=== PATIENT | male | born 1955 | race Caucasian/White ===

== ENCOUNTER → 2018-03-23 | Outpatient (CLI) | payer BC ==
[2018-03-23 19:32] LABS: BASOPHILS % (AUTO) 0.6 %; EOSINOPHILS # (AUTO) 0.1 10^3/uL (0.0-0.7); EOSINOPHILS % (AUTO) 1.8 %; HGB - HEMOGLOBIN 15.4 g/dL (14.0-18.0); LYMPHOCYTES # (AUTO) 1.9 10^3/uL (1.5-3.5); LYMPHOCYTES % (AUTO) 41.5 %; MEAN CORPUSCULAR HEMOGLOBIN 30.6 pg (27.0-31.0); MEAN CORPUSCULAR HGB CONC 33.3 g/dL (32.0-36.0); MEAN PLATELET VOLUME 8.7 fL (7.4-11.4); MONOCYTES # (AUTO) 0.4 10^3/uL (0.0-1.0); MONOCYTES % (AUTO) 9.5 %; NEUTROPHILS # (AUTO) 2.1 10^3/uL (1.5-6.6); NEUTROPHILS % (AUTO) 46.6 %; PLT - PLATELET COUNT 189 10^3/uL (130-450); RED BLOOD COUNT 5.02 10^6/uL (4.70-6.10); RED CELL DISTRIBUTION WIDTH 13.3 % (12.0-15.0); WHITE BLOOD COUNT 4.6 x10^3/uL (4.8-10.8)
[2018-03-23 20:09] LABS: CHOL/HDL RATIO 3.7 (<5.0); CHOLESTEROL 155 mg/dL; HDL CHOLESTEROL 42 mg/dL; LDL CHOLESTEROL,CALCULATED 99 mg/dL; LDL/HDL RATIO 2.4 (<3.6); VLDL CHOLESTEROL 14 mg/dL
== END ==
LOC: LAB.WCP 08:00
PROVIDERS: ATTEND Family Medicine
DX: R03.0 Elevated blood-pressure reading, without diagnosis of hypertension (principal); Z12.5 Encounter for screening for malignant neoplasm of prostate
CPT/HCPCS: 36415; 80061; 83721; 84153; 84443; 85025

== ENCOUNTER 2018-05-23 16:23 | Emergency (ER) | payer BC ==
[2018-05-23 16:39] VITALS: BP 180/98
--- NOTE | 2018-05-23 17:35 | ED Physician Documentation ---
History of Present Illness - Stated complaint Stated Complaint: KNEE SWELLING - Chief complaint Chief Complaint: General - History obtained from History obtained from: Patient, Family - History of Present Illness Timing: How many days ago (3) Pain level max: 8 Pain level now: 4 - Additonal information Additional information: 63-year-old male presents to the emergency department with left knee pain for the past 2-3 days. States was worse yesterday but improving today. Has a history of a DVT in the left leg several years ago, concerned that it may be recurrent, came for evaluation. States that the left leg has been swollen since the DVT several years ago. He is not currently anticoagulated. Worse with movement and better with rest. No fevers. No redness Review of Systems Constitutional: denies: Fever, Chills Cardiac: denies: Chest pain / pressure, Palpitations Respiratory: denies: Cough GI: denies: Nausea, Vomiting, Diarrhea Skin: denies: Rash Musculoskeletal: denies: Neck pain, Back pain Neurologic: denies: Headache PD PAST MEDICAL HISTORY - Past Medical History Past Medical History: Yes Other Past Medical History: DVT - Present Medications Home Medications: Ambulatory Orders Medication Instructions Recorded Confirmed No Known Home Medications 05/23/18 05/23/18 - Allergies Allergies/Adverse Reactions: Allergies Allergy/AdvReac Type Severity Reaction Status Date / Time No Known Drug Allergies Allergy Verified 05/23/18 16:39 - Living Situation Living Situation: reports: With family Living Arrangement: reports: At home - Social History Does the pt have substance abuse?: No - Family History Family history: reports: Non contributory PD ED PE NORMAL - Vitals Vital signs reviewed: Yes - General General: Alert and oriented X 3, No acute distress - HEENT HEENT: Moist mucous membranes - Neck Neck: Supple, no meningeal sign - Cardiac Cardiac: RRR - Respiratory Respiratory: No respiratory distress, Clear bilaterally - Derm Derm: Warm and dry - Extremities Extremities: Other (L knee - Mild swelling. No bony tenderness. Neurovascularly intact. Mild MCL and LCL laxity. ACL & PCL intact. ) - Neuro Neuro: Alert and oriented X 3 Results - Vitals Vitals: Vital Signs - 24 hr 05/23/18 16:35 Temperature 36.0 C L Heart Rate 74 Respiratory 16 Rate Blood Pressure 180/98 H O2 Saturation 97 Oxygen O2 Source Room air - Rads (name of study) L knee xray Radiology: Prelim report reviewed, EMP read contemporaneously, See rad report (. Moderate joint effusion. Mild to moderate chronic degenerative disease and joint space narrowing of the medial knee. ) duplex US LLE Radiology: Prelim report reviewed, EMP read contemporaneously, See rad report (no DVT) PD MEDICAL DECISION MAKING - ED course Complexity details: reviewed results, re-evaluated patient, considered differential, d/w patient, d/w family ED course: 63-year-old male with a left knee effusion, likely secondary to arthritis. He is well-appearing, nontoxic. No evidence of septic joint. Declines any pain medication here or for home. He is ambulating well. No DVT on ultrasound. Patient counseled regarding signs and symptoms for which I believe and urgent re-evaluation would be necessary. Patient with good understanding of and agreement to plan and is comfortable going home at this time This document was made in part using voice recognition software. While efforts are made to proofread this document, sound alike and grammatical errors may oc cur. Departure - Departure Disposition: 01 Home, Self Care Clinical Impression: Knee effusion, left Condition: Good Instructions: ED Effusion Knee Follow-Up: Nicanor Bradford MD [Primary Care Provider] - Within 1 week Comments: You may bear weight as tolerated. This should improve over the next few days. A neoprene brace may help compress the joint. Return if you worsen.
--- NOTE | 2018-05-23 17:43 | XRAY Report ---
Reason: L knee pain, swelling. no trauma Procedure Date: 05/23/2018 Accession Number: [id number] / [id number] Procedure: XR - Knee 4 View LT CPT Code: FULL RESULT: EXAM: LEFT KNEE RADIOGRAPHY EXAM DATE: 05/23/2018 05:19 PM. CLINICAL HISTORY: L knee pain, swelling. No trauma. COMPARISON: None. TECHNIQUE: 4 views. FINDINGS: Bones: Negative for acute fracture. There is moderate spurring and sclerosis in the medial compartment of the knee. Joints: There is mild to moderate medial compartment joint space narrowing. There is a moderate sized suprapatellar joint effusion. There is mild spurring and irregularity of the patellofemoral compartment. Soft Tissues: Normal. No soft tissue swelling. IMPRESSION: 1. Moderate joint effusion. 2. Mild to moderate chronic degenerative disease and joint space narrowing of the medial knee. RADIA
--- NOTE | 2018-05-23 18:11 | Ultrasound Report ---
Reason: L leg swelling, h/o DVT Procedure Date: 05/23/2018 Accession Number: [id number] / [id number] Procedure: US - Duplex Ext Veins Left CPT Code: FULL RESULT: EXAM: LEFT LOWER EXTREMITY VENOUS ULTRASOUND EXAM DATE: 05/23/2018 05:57 PM. CLINICAL HISTORY: L leg swelling, h/o DVT. COMPARISON: None. TECHNIQUE: Real-time sonographic vascular imaging was performed by the windows security analyst through the lower extremity utilizing both color-flow and Doppler spectral analysis. Multiple special service representative static images were saved for review. FINDINGS: Common Femoral Vein (CFV): Normal. CFV-GSV Junction: Normal. Profunda Femoral Vein (PFV): Normal. Femoral Vein (FV) Prox: Normal. Femoral Vein (FV) Mid: Normal. Femoral Vein (FV) Dist: Normal. Popliteal Vein: Normal. Posterior Tibial Veins: Normal. Peroneal Veins: Normal. Contralateral Side CFV: Normal. Other: None. IMPRESSION: No evidence for deep venous thrombosis. RADIA
== END 2018-05-23 18:12 | disposition home or self-care (01) ==
LOC: ED 16:23
DX: M25.462 Effusion, left knee (principal); Z86.718 Personal history of other venous thrombosis and embolism
CPT/HCPCS: 99282; 99283

== ENCOUNTER 2019-04-02 08:00 | Outpatient (CLI) | payer BC ==
[2019-04-02 15:24] LABS: BASOPHILS % (AUTO) 0.6 %; EOSINOPHILS # (AUTO) 0.1 10^3/uL (0.0-0.7); EOSINOPHILS % (AUTO) 2.4 %; HGB - HEMOGLOBIN 14.9 g/dL (14.0-18.0); LYMPHOCYTES % (AUTO) 41.8 %; MEAN CORPUSCULAR HEMOGLOBIN 29.9 pg (27.0-31.0); MEAN CORPUSCULAR HGB CONC 32.5 g/dL (32.0-36.0); MEAN CORPUSCULAR VOLUME 91.8 fL (80.0-94.0); MEAN PLATELET VOLUME 11.2 fL (7.4-11.4); MONOCYTES # (AUTO) 0.6 10^3/uL (0.0-1.0); MONOCYTES % (AUTO) 12.2 %; NEUTROPHILS % (AUTO) 42.8 %; PLT - PLATELET COUNT 177 10^3/uL (130-450); RED BLOOD COUNT 4.99 10^6/uL (4.70-6.10); RED CELL DISTRIBUTION WIDTH 12.9 % (12.0-15.0); WHITE BLOOD COUNT 4.7 x10^3/uL (4.8-10.8)
[2019-04-02 15:49] LABS: ALBUMIN 4.3 g/dL (3.2-5.5); ALBUMIN/GLOBULIN RATIO 1.9 (1.0-2.2); CALCIUM 8.7 mg/dL (8.5-10.3); TOTAL PROTEIN 6.6 g/dL (6.7-8.2)
== END 2019-04-02 23:59 | disposition home or self-care (01) ==
LOC: LAB.WCP 08:00
PROVIDERS: ATTEND Family Medicine
DX: Z00.00 Encounter for general adult medical examination without abnormal findings (principal); Z12.5 Encounter for screening for malignant neoplasm of prostate
CPT/HCPCS: 36415; 80053; 84153; 85025

== ENCOUNTER 2020-12-17 08:00 | Outpatient (CLI) | payer BC, OTHER ==
[2020-12-17 12:27] LABS: BASOPHILS % (AUTO) 0.5 %; EOSINOPHILS # (AUTO) 0.1 10^3/uL (0.0-0.7); HCT - HEMATOCRIT 45.8 % (42.0-52.0); HGB - HEMOGLOBIN 15.3 g/dL (14.0-18.0); LYMPHOCYTES # (AUTO) 1.9 10^3/uL (1.5-3.5); LYMPHOCYTES % (AUTO) 31.9 %; MEAN CORPUSCULAR HEMOGLOBIN 30.5 pg (27.0-31.0); MEAN CORPUSCULAR HGB CONC 33.4 g/dL (32.0-36.0); MEAN CORPUSCULAR VOLUME 91.2 fL (80.0-94.0); MEAN PLATELET VOLUME 10.5 fL (7.4-11.4); MONOCYTES # (AUTO) 0.6 10^3/uL (0.0-1.0); MONOCYTES % (AUTO) 10.4 %; NEUTROPHILS # (AUTO) 3.4 10^3/uL (1.5-6.6); PLT - PLATELET COUNT 203 10^3/uL (130-450); RED BLOOD COUNT 5.02 10^6/uL (4.70-6.10); RED CELL DISTRIBUTION WIDTH 13.1 % (12.0-15.0); WHITE BLOOD COUNT 6.1 x10^3/uL (4.8-10.8)
[2020-12-17 12:57] LABS: ALBUMIN 4.1 g/dL (3.2-5.5); ALBUMIN/GLOBULIN RATIO 1.5 (1.0-2.2); ALKALINE PHOSPHATASE 66 IU/L (42-121); ALT ALANINE AMINOTRANSFERASE 22 IU/L (10-60); AST ASPARTATE AMINOTRANSFERASE 24 IU/L (10-42); BILIRUBIN,TOTAL 0.9 mg/dL (0.2-1.0); BUN - BLOOD UREA NITROGEN 18 mg/dL (6-20); CALCIUM 9.1 mg/dL (8.5-10.3); CARBON DIOXIDE - CO2 29 mmol/L (21-32); CHLORIDE 104 mmol/L (101-111); CHOL/HDL RATIO 4.6 (<5.0); CHOLESTEROL 179 mg/dL; GFR - MDRD 75 (>89); GLUCOSE 96 mg/dL (70-100); HDL CHOLESTEROL 39 mg/dL; LDL CHOLESTEROL,CALCULATED 118 mg/dL; POTASSIUM 4.1 mmol/L (3.5-5.0); SODIUM 139 mmol/L (135-145); TOTAL PROTEIN 6.9 g/dL (6.7-8.2); TRIGLYCERIDES 109 mg/dL; VLDL CHOLESTEROL 22 mg/dL
== END 2020-12-17 23:59 | disposition home or self-care (01) ==
LOC: LAB.WCP 08:00
PROVIDERS: ATTEND Family Medicine
DX: R03.0 Elevated blood-pressure reading, without diagnosis of hypertension (principal); Z12.5 Encounter for screening for malignant neoplasm of prostate
CPT/HCPCS: 36415; 80053; 80061; 83721; 84153; 85025

== ENCOUNTER 2020-12-22 14:24 | Outpatient (CLI) | payer OTHER ==
--- NOTE | 2020-12-23 08:19 | XRAY Report ---
PROCEDURE: Lumbar Spine Complete INDICATIONS: DEGENERATIVE JOINT DISEASE TECHNIQUE: 5 views of the lumbar spine were acquired. COMPARISON: None available. FINDINGS: Bones: 5 [id number] vertebrae are present. Trace dextrocurvature centered at the L1 level. Trac e multilevel retrolisthesis. Multilevel disc degeneration, most notably and severe at the L5-S1 level . Moderate L4-L5 and L5-S1 facet joint arthropathy. No vertebral body compression fractures. No tomasa picious bony lesions. Bones are osteopenic. Soft tissues: Overlying bowel gas pattern is normal. No suspicious soft tissue calcifications. 1.5 cm rounded calcification projected over the right lower quadrant which cannot be further localized. IMPRESSION: 1. Multilevel spondylosis, most severe at the L5-S1 level. 2. 1.5 cm right lower quadrant calcification which cannot be further localized. If indicated, CT coul d be performed for further localization and characterization. Reviewed by: STEVE Adamson on 12/23/2020 8:18 AM PDT Approved by: Arcenio Alexander MD on 12/23/2020 8:18 AM PDT Station ID: [id number]
--- NOTE | 2020-12-23 08:19 | XRAY Report ---
PROCEDURE: Knee 2 View BILAT INDICATIONS: DEGENERATIVE JOINT DISEASE, BILATERAL KNEES TECHNIQUE: 2 views of the bilateral knee(s) were acquired. COMPARISON: None. FINDINGS: Bones: No fractures or dislocations. No suspicious bony lesions. Tricompartmental bilateral knee j oint space narrowing with periarticular osteophyte formation, severe involving the medial femoral tib ial joints. There is varus angulation of the lower legs bilaterally. Soft tissues: Small bilateral joint effusion. No suspicious soft tissue calcifications. IMPRESSION: Tricompartmental bilateral knee joint degeneration, severe involving the medial femoral tibial joints. Reviewed by: STEVE Adamson on 12/23/2020 8:18 AM PDT Approved by: Arcenio Alexander MD on 12/23/2020 8:18 AM PDT Station ID: [id number]
== END 2020-12-22 14:25 | disposition home or self-care (01) ==
LOC: DI.N 14:24
PROVIDERS: ATTEND Internal Medicine
DX: M47.817 Spondylosis without myelopathy or radiculopathy, lumbosacral region (principal); M47.816 Spondylosis without myelopathy or radiculopathy, lumbar region; M17.0 Bilateral primary osteoarthritis of knee; M61.9 Calcification and ossification of muscle, unspecified

== ENCOUNTER 2021-01-20 07:27 | Emergency (ER) | payer OTHER ==
[2021-01-20] MEDS ORDERED: ONDANSETRON 4 MG/2 ML VIAL IVP STA (08:01)
[2021-01-20] MEDS ORDERED: HYDROmorphone 1 MG/ML CARPUJECT IVP STA (08:01)
--- NOTE | 2021-01-20 08:03 | ED Physician Documentation ---
History of Present Illness - Stated complaint Stated Complaint: LEG SWELLING - Chief complaint Chief Complaint: Ext Problem - History obtained from History obtained from: Patient - History of Present Illness Timing: Prior to arrival Pain level now: 0 ('just hurts') - Additonal information Additional information: This is a 65-year-old man with a history of a DVT in his left leg who presents with complaints that this morning about 20 minutes ago he got up to get in the shower to go to work when he noticed his left leg was swollen. He also is having intense back pain but cannot rated on a 1-10 scale. He says he has been dealing with back pain for quite some time and has physical therapy scheduled. This pain today however is slightly different in character although he cannot specify any further than that. He does have some pain in the lower left leg but again cannot write that on a 1-10 scale either. Denies history of AAA. His prior DVT was approximately 8 to 10 years ago for which she was treated with blood thinning medications and is no longer on those medications. The source of the DVT was never completely delineated. Patient denies any abdominal pain, nausea or vomiting. No urinary symptoms. No recent trauma. 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 Denies cough, upper respiratory symptoms or fever. Review of Systems Constitutional: denies: Fever Eyes: denies: Decreased vision Nose: denies: Rhinorrhea / runny nose, Congestion Cardiac: denies: Chest pain / pressure, Palpitations Respiratory: denies: Dyspnea, Cough GI: denies: Abdominal Pain, Nausea, Vomiting : denies: Dysuria Musculoskeletal: reports: Back pain, Extremity pain (Left leg) Neurologic: reports: Numbness (Left leg 'numb feeling'). denies: Generalized weakness, Syncope PD PAST MEDICAL HISTORY - Past Medical History Neuro: None Other Past Medical History: L leg DVT - Past Surgical History Past Surgical History: No - Present Medications Home Medications: Ambulatory Orders Medication Instructions Recorded Confirmed Aspirin [Aspirin EC] 81 mg PO DAILY 01/20/21 01/20/21 - Allergies Allergies/Adverse Reactions: Allergies Allergy/AdvReac Type Severity Reaction Status Date / Time No Known Drug Allergies Allergy Verified 01/20/21 07:31 - Social History Does the pt smoke?: No Smoking Status: Never smoker Does the pt drink ETOH?: No Does the pt have substance abuse?: No PD ED PE NORMAL - Vitals Vital signs reviewed: Yes - General General: Alert and oriented X 3 - HEENT HEENT: Atraumatic, PERRL - Cardiac Cardiac: RRR, No murmur - Respiratory Respiratory: No respiratory distress, Clear bilaterally - Abdomen Abdomen: Normal bowel sounds, Soft - Back Back: No CVA TTP - Derm Derm: Other (L leg earlene color) - Extremities Extremities: No: No edema (L leg with edema diffuse and earlene color) - Neuro Neuro: Alert and oriented X 3, telecom engineer 2-12 intact, No motor deficit, No sensory deficit (Intact to light touch in feet bilat), Normal speech - Psych Psych: Normal mood - Free text exam Free text exam: No palpable pulses in left dp or post tibial; Able to doppler dp and post tibial pulses in left foot but diminished compared to R foot. Results - Vitals Vitals: Vital Signs - 24 hr 01/20/21 01/20/21 01/20/21 07:31 08:14 08:30 Temperature 36.2 C L Heart Rate 63 56 L 66 Respiratory 24 24 18 Rate Blood Pressure 100/61 80/48 L 86/53 L O2 Saturation 99 93 94 01/20/21 01/20/21 01/20/21 09:23 09:58 09:59 Temperature Heart Rate 67 66 74 Respiratory 24 18 20 Rate Blood Pressure 105/72 101/71 100/70 O2 Saturation 97 95 95 01/20/21 11:09 Temperature Heart Rate 66 Respiratory 16 Rate Blood Pressure 124/79 O2 Saturation 94 Oxygen O2 Source Room air - Labs Labs: Laboratory Tests 01/20/21 01/20/21 01/20/21 07:53 07:53 07:53 WBC 9.6 RBC 4.77 Hgb 14.5 Hct 44.2 MCV 92.7 MCH 30.4 MCHC 32.8 RDW 13.0 Plt Count 183 MPV 10.1 Neut # (Auto) 5.9 Lymph # (Auto) 2.5 [place] # (Auto) 1.0 Eos # (Auto) 0.1 Baso # (Auto) 0.0 Absolute Nucleated RBC 0.00 Nucleated RBC % 0.0 PT INR APTT 24.0 L Sodium 138 Potassium 3.8 Chloride 102 Carbon Dioxide 25 Anion Gap 11.0 BUN 25 H Creatinine 1.1 Estimated GFR (MDRD) 67 L Glucose 141 H Calcium 9.1 01/20/21 01/20/21 07:53 09:35 WBC 10.0 RBC 4.76 Hgb 14.3 Hct 44.1 MCV 92.6 MCH 30.0 MCHC 32.4 RDW 12.9 Plt Count 149 MPV 9.6 Neut # (Auto) Lymph # (Auto) [place] # (Auto) Eos # (Auto) Baso # (Auto) Absolute Nucleated RBC Nucleated RBC % PT 12.2 INR 1.1 APTT Sodium Potassium Chloride Carbon Dioxide Anion Gap BUN Creatinine Estimated GFR (MDRD) Glucose Calcium PD MEDICAL DECISION MAKING - ED course ED course: 0844: Nursing reports pain improved. Patient in CT now. 1015: Radiologist reports equivocal results with CTA abd with LE runoff. Recommend U/S arterial for further delineation. Ordered venous doppler also. Emperic heparin started awaiting confirmatory ultrasound. 1200: Phone call from radiologist regarding the ultrasound report. The arterial system is patent. There is extensive clot in the left lower extremity venous system that appears even to enter the iliac veins. Given his clinical presentation and the extensive clot they recommended catheter directed thrombolysis. The patient request transfer to [facility] if possible for the procedure. 1325: The patient has been accepted to [facility]. We are awaiting transport. Departure - Departure Disposition: 02 Transfer Acute Care Hosp Clinical Impression: Deep vein thrombosis, Phlegmasia cerulea dolens of left lower extremity Condition: Good
[2021-01-20 08:10] LABS: BASOPHILS % (AUTO) 0.4 %; EOSINOPHILS # (AUTO) 0.1 10^3/uL (0.0-0.7); HCT - HEMATOCRIT 44.2 % (42.0-52.0); HGB - HEMOGLOBIN 14.5 g/dL (14.0-18.0); LYMPHOCYTES # (AUTO) 2.5 10^3/uL (1.5-3.5); LYMPHOCYTES % (AUTO) 26.5 %; MEAN CORPUSCULAR HEMOGLOBIN 30.4 pg (27.0-31.0); MEAN CORPUSCULAR HGB CONC 32.8 g/dL (32.0-36.0); MEAN CORPUSCULAR VOLUME 92.7 fL (80.0-94.0); MEAN PLATELET VOLUME 10.1 fL (7.4-11.4); MONOCYTES % (AUTO) 10.4 %; NEUTROPHILS # (AUTO) 5.9 10^3/uL (1.5-6.6); NEUTROPHILS % (AUTO) 61.3 %; PLT - PLATELET COUNT 183 10^3/uL (130-450); RED BLOOD COUNT 4.77 10^6/uL (4.70-6.10); WHITE BLOOD COUNT 9.6 x10^3/uL (4.8-10.8)
[2021-01-20] MEDS ORDERED: IOPAMIDOL-300 100 ML VIAL ONE (08:11)
[2021-01-20 08:15] LABS: CALCIUM 9.1 mg/dL (8.5-10.3); CREATININE 1.1 mg/dL (0.6-1.2); POTASSIUM 3.8 mmol/L (3.5-5.0)
[2021-01-20] MEDS ORDERED: LACTATED RINGERS 1,000 ML IV STA (08:30)
[2021-01-20 08:56] LABS: INR 1.1 (0.8-1.2); PT - PROTHROMBIN TIME 12.2 secs (9.9-12.6)
[2021-01-20] MEDS ORDERED: HEPARIN 5,000 UNIT/ML VIAL IVP STA (09:02)
[2021-01-20 09:41] LABS: HCT - HEMATOCRIT 44.1 % (42.0-52.0); HGB - HEMOGLOBIN 14.3 g/dL (14.0-18.0); MEAN CORPUSCULAR HGB CONC 32.4 g/dL (32.0-36.0); MEAN CORPUSCULAR VOLUME 92.6 fL (80.0-94.0); MEAN PLATELET VOLUME 9.6 fL (7.4-11.4); RED BLOOD COUNT 4.76 10^6/uL (4.70-6.10); RED CELL DISTRIBUTION WIDTH 12.9 % (12.0-15.0)
--- NOTE | 2021-01-20 09:47 | CT Report ---
PROCEDURE: ANGIO ABD RUNOFF W/WO - B/L INDICATIONS: Left leg pain, swelling and decrease pulse CONTRAST: IV CONTRAST: Isovue 300 ml: 125 PO CONTRAST: *NO PO CONTRAST TECHNIQUE: After the administration of intravenous contrast, 2 and 5 mm sections acquired from T12 to the feet, with optional delayed image acquisition from the knees to the feet. 3-dimensional maximum intensity projection (MIP) coronal and sagittal reformats, and/or 3-dimensional volume rendering reformatting w as then performed. For radiation dose reduction, the following was used: automated exposure control , adjustment of mA and/or kV according to patient size. Due to lack of contrast noted in left leg art erial structures, repeat imaging was obtained from approximately the level of Rivera's canal inferior ly. COMPARISON: None. FINDINGS: Image quality: Excellent. Extravascular tissues: Extreme lung bases are clear. Heart is not included. Visualized portions of t he liver and spleen are normal in size and enhancement. A low-density lesion in the inferior aspect o f the liver is likely a small cyst versus hemangioma. Gallbladder is unremarkable Biliary system is non dilated. Pancreas enhances normally. No adrenal nodules. Kidneys are normal in size and enhan cement, without hydronephrosis. Visualized non-opacified bowel loops demonstrate normal wall thicknes s and enhancement. No free fluid or air. No retroperitoneal or mesenteric adenopathy. No ventral h ernias. Bladder wall thickness is normal. Small fat-containing left inguinal hernia. No inguinal tim nopathy. No suspicious bony lesions. No vertebral body compression fractures. Abdominal aorta: Aorta is normal caliber and widely patent. Celiac, SMA, bilateral renal arteries, a nd ILSA are widely patent. Right lower extremity: Common iliac and external iliac and common femoral and SFA, and popliteal are patent. 3 runoff vessels are patent. Left lower extremity: Tortuosity of the left common iliac and external iliac, widely patent. Common femoral is widely patent. There is relatively gradual decrease in opacification of the left SFA start ing in the junction between the proximal and mid thigh. On initial imaging, there is no opacification of the distal SFA inferiorly. On repeat imaging, which does not include the SFA, from Rivera's canal and inferiorly, structures appear to be likely patent. From an imaging perspective, it is difficult to differentiate between imaging prior to the bolus versus the presence of acute clot in the left SFA . IMPRESSION: 1. Aorta, pelvic arteries, and right lower extremity runoff arteries are widely patent. 2. Question acute left SFA thrombosis versus issues related to bolus timing. From Rivera's canal more inferiorly, the left lower extremity arterial vessels are likely patent. Above discussed with JORGE LUIS DANIELS at the time of dictation on 01/19/2021 at 0932 hours. Would rec ommend targeted arterial ultrasound of the left SFA to determine whether there is acute SFA occlusion versus issues related to bolus timing. Reviewed by: Randy Lowe MD on 01/20/2021 9:46 AM PDT Approved by: Randy Lowe MD on 01/20/2021 9:46 AM PDT Station ID: [id number]
[2021-01-20] MEDS ORDERED: HEPARIN 25000UNITS/500ML (D5W) 25,000 UNIT/500 ML BAG IV SCH (10:00)
--- NOTE | 2021-01-20 11:42 | Ultrasound Report ---
PROCEDURE: Duplex Lwr Ext Arterial LT INDICATIONS: Decrease pulse L leg TECHNIQUE: Color and pulse Doppler interrogation was performed of the left lower extremity arterial system, with image documentation. COMPARISON: CT angiogram of the aorta and runoff arteries from today. The CT angiogram suggested pos sible nonopacification of the left SFA secondary to bolus timing versus acute thrombosis. FINDINGS: Common femoral artery: 102.5 cm/sec, with triphasic flow. Deep femoral artery: 76.1 cm/sec, with triphasic flow. Proximal superficial femoral artery: 71.8 cm/sec, with triphasic flow. Mid superficial femoral artery: 75.5 cm/sec, with triphasic flow. Distal superficial femoral artery: 60.7 cm/sec, with triphasic flow. Popliteal artery: 61.7 cm/sec, with triphasic flow. Posterior tibial artery: 72.1 cm/sec, with triphasic flow. Anterior tibial artery/dorsalis pedis: 74.6/69.5 cm/sec, with triphasic flow. Dc-scale imaging description: Widely patent vessels IMPRESSION: No evidence of acute left SFA clot. Widely patent left lower extremity arterial tree. Above discussed with JORGE LUIS DANIELS at the time of dictation. Reviewed by: Randy Lowe MD on 01/20/2021 11:40 AM PDT Approved by: Randy Lowe MD on 01/20/2021 11:40 AM PDT Station ID: [id number]
--- NOTE | 2021-01-20 12:09 | Ultrasound Report ---
PROCEDURE: Duplex Ext Veins Left INDICATIONS: swelling left leg TECHNIQUE: Real-time imaging, as well as color and pulse Doppler interrogation, were performed of the lower extr emity deep veins from the inguinal ligament to the popliteal fossa. COMPARISON: None. FINDINGS: There is adherent wall clot in the popliteal and lower thigh segment and mid thigh of the d eep vein of the thigh (superficial femoral vein). In the proximal finding, the deep into the thigh is acutely thrombosed. There is thrombosis of the central portion of the profunda as well as the greate r saphenous vein at the saphenofemoral junction. The left common femoral vein is acutely thrombosed. Clot extends at least into the left external iliac vein. IMPRESSION: Acute thrombosis involving the proximal thigh segment of the deep vein of the thigh, the common femoral vein, profunda, greater saphenous vein, and external iliac vein. This is superimposed on probable chronic DVT in the popliteal vein and distal thigh segment and mid thigh segment of the deep vein of the thigh. Comment: Consider possible catheter directed venous thrombolysis. Above discussed with JORGE LUIS DANIELS at the time of dictation. Reviewed by: Randy Lowe MD on 01/20/2021 12:08 PM PDT Approved by: Randy Lowe MD on 01/20/2021 12:08 PM PDT Station ID: [id number]
[2021-01-20 14:03] VITALS: BP 124/77
== END 2021-01-20 14:25 | disposition short-term general hospital (02) ==
LOC: ED 07:27
DX: I82.492 Acute embolism and thrombosis of other specified deep vein of left lower extremity (principal); I82.412 Acute embolism and thrombosis of left femoral vein; I82.422 Acute embolism and thrombosis of left iliac vein; Z79.82 Long term (current) use of aspirin; Z20.822 Contact with and (suspected) exposure to COVID-19
CPT/HCPCS: 36415; 75635; 80048; 81599; 85025; 85027; 85610; 85730; 87635; 93926; 93971; 96374; 96375; 99284; 99285; J1170; J7120; Q9967; 0202U; 85520

== ENCOUNTER 2021-01-20 14:28 | Outpatient (CLI) | payer OTHER | END 2021-01-20 14:29 | disposition short-term general hospital (02) | LOC: EMS 14:28 | PROVIDERS: ATTEND Emergency Medicine | DX: I82.402 Acute embolism and thrombosis of unspecified deep veins of left lower extremity (principal) | CPT/HCPCS: A0425; A0426 ==

== ENCOUNTER 2021-05-01 08:00 | Outpatient (CLI) | payer OTHER ==
[2021-05-01 15:34] LABS: BASOPHILS % (AUTO) 0.5 %; EOSINOPHILS % (AUTO) 0.3 %; HCT - HEMATOCRIT 46.9 % (42.0-52.0); HGB - HEMOGLOBIN 15.7 g/dL (14.0-18.0); LYMPHOCYTES # (AUTO) 1.7 10^3/uL (1.5-3.5); LYMPHOCYTES % (AUTO) 27.3 %; MEAN CORPUSCULAR HEMOGLOBIN 29.4 pg (27.0-31.0); MEAN CORPUSCULAR HGB CONC 33.5 g/dL (32.0-36.0); MEAN CORPUSCULAR VOLUME 87.8 fL (80.0-94.0); MEAN PLATELET VOLUME 10.6 fL (7.4-11.4); MONOCYTES # (AUTO) 0.6 10^3/uL (0.0-1.0); MONOCYTES % (AUTO) 9.6 %; NEUTROPHILS % (AUTO) 62.1 %; PLT - PLATELET COUNT 245 10^3/uL (130-450); RED BLOOD COUNT 5.34 10^6/uL (4.70-6.10); WHITE BLOOD COUNT 6.4 x10^3/uL (4.8-10.8)
[2021-05-01 15:48] LABS: ALBUMIN 4.6 g/dL (3.2-5.5); ALBUMIN/GLOBULIN RATIO 1.6 (1.0-2.2); BILIRUBIN,TOTAL 0.9 mg/dL (0.2-1.0); CALCIUM 9.1 mg/dL (8.5-10.3); CREATININE 0.9 mg/dL (0.6-1.2); POTASSIUM 3.7 mmol/L (3.5-5.0); TOTAL PROTEIN 7.4 g/dL (6.7-8.2)
== END 2021-05-01 23:59 ==
LOC: LAB.N 08:00
PROVIDERS: ATTEND Physician Assistant
DX: G62.9 Polyneuropathy, unspecified (principal)
CPT/HCPCS: 36415; 80053; 81599; 84425; 84443; 85025

== ENCOUNTER 2021-05-13 08:00 | Outpatient (CLI) | payer OTHER ==
[2021-05-13 13:49] LABS: CALCIUM 9.2 mg/dL (8.5-10.3); CREATININE 0.9 mg/dL (0.6-1.2)
[2021-05-13 18:54] LABS: ESTIMATED AVERAGE GLUCOSE 120 mg/dL (70-100); HEMOGLOBIN A1c% 5.8 % (4.27-6.07)
== END 2021-05-13 23:59 | disposition home or self-care (01) ==
LOC: LAB.WCP 08:00
PROVIDERS: ATTEND Internal Medicine
DX: I82.509 Chronic embolism and thrombosis of unspecified deep veins of unspecified lower extremity (principal); G62.9 Polyneuropathy, unspecified
CPT/HCPCS: 36415; 80048; 81599; 82607; 83036; 84155; 84165; 84207; 85730; 86334

== ENCOUNTER 2022-06-21 06:56 | Outpatient (CLI) | payer OTHER | END 2022-06-21 06:57 | disposition home or self-care (01) | LOC: LAB 06:56 | PROVIDERS: ATTEND Internal Medicine | DX: Z53.9 Procedure and treatment not carried out, unspecified reason (principal) | CPT/HCPCS: 80053; 80061; 83036; 83721; 84153; 84443; 85025 ==

== ENCOUNTER 2022-06-28 06:48 | Outpatient (CLI) | payer OTHER ==
[2022-06-28 07:21] LABS: BASOPHILS % (AUTO) 0.7 %; EOSINOPHILS # (AUTO) 0.1 10^3/uL (0.0-0.7); EOSINOPHILS % (AUTO) 2.7 %; HCT - HEMATOCRIT 45.5 % (42.0-52.0); HGB - HEMOGLOBIN 15.1 g/dL (14.0-18.0); LYMPHOCYTES # (AUTO) 1.6 10^3/uL (1.5-3.5); LYMPHOCYTES % (AUTO) 35.2 %; MEAN CORPUSCULAR HEMOGLOBIN 30.4 pg (27.0-31.0); MEAN CORPUSCULAR HGB CONC 33.2 g/dL (32.0-36.0); MEAN CORPUSCULAR VOLUME 91.5 fL (80.0-94.0); MEAN PLATELET VOLUME 10.1 fL (7.4-11.4); MONOCYTES # (AUTO) 0.5 10^3/uL (0.0-1.0); MONOCYTES % (AUTO) 11.7 %; NEUTROPHILS # (AUTO) 2.2 10^3/uL (1.5-6.6); NEUTROPHILS % (AUTO) 49.5 %; PLT - PLATELET COUNT 182 10^3/uL (130-450); RED BLOOD COUNT 4.97 10^6/uL (4.70-6.10); RED CELL DISTRIBUTION WIDTH 12.8 % (12.0-15.0); WHITE BLOOD COUNT 4.4 x10^3/uL (4.8-10.8)
[2022-06-28 07:34] LABS: ALBUMIN/GLOBULIN RATIO 1.5 (1.0-2.2); ALKALINE PHOSPHATASE 57 IU/L (42-121); ALT ALANINE AMINOTRANSFERASE 27 IU/L (10-60); AST ASPARTATE AMINOTRANSFERASE 28 IU/L (10-42); BILIRUBIN,TOTAL 0.5 mg/dL (0.2-1.0); BUN - BLOOD UREA NITROGEN 18 mg/dL (6-20); CALCIUM 9.1 mg/dL (8.5-10.3); CARBON DIOXIDE - CO2 23 mmol/L (21-32); CHLORIDE 108 mmol/L (101-111); CHOL/HDL RATIO 3.9 (<5.0); CHOLESTEROL 174 mg/dL; CREATININE 0.8 mg/dL (0.6-1.2); GFR - MDRD 96 (>89); GLUCOSE 105 mg/dL (70-100); HDL CHOLESTEROL 45 mg/dL; LDL CHOLESTEROL,CALCULATED 118 mg/dL; LDL/HDL RATIO 2.6 (<3.6); POTASSIUM 3.9 mmol/L (3.5-5.0); SODIUM 141 mmol/L (135-145); TOTAL PROTEIN 6.6 g/dL (6.7-8.2); TRIGLYCERIDES 54 mg/dL; VLDL CHOLESTEROL 11 mg/dL
[2022-06-28 08:04] LABS: THYROID STIMULATING HORMONE 2.38 uIU/mL (0.34-5.60)
[2022-06-28 12:33] LABS: ESTIMATED AVERAGE GLUCOSE 114 mg/dL (70-100); HEMOGLOBIN A1c% 5.6 % (4.27-6.07)
== END 2022-06-28 06:49 | disposition home or self-care (01) ==
LOC: LAB 06:48
PROVIDERS: ATTEND Internal Medicine
DX: R73.01 Impaired fasting glucose (principal); Z13.220 Encounter for screening for lipoid disorders; Z12.5 Encounter for screening for malignant neoplasm of prostate; G62.9 Polyneuropathy, unspecified
CPT/HCPCS: 36415; 80053; 80061; 83036; 83721; 84153; 84443; 85025

== ENCOUNTER 2022-08-29 19:57 | Emergency (ER) | payer OTHER ==
--- NOTE | 2022-08-29 21:12 | ED Physician Documentation ---
History of Present Illness - Stated complaint Stated Complaint: UPPER LT BODY PX - Chief complaint Chief Complaint: Ext Problem - History obtained from History obtained from: Patient - History of Present Illness Timing: Yesterday Pain level max: 3 Pain level now: 3 - Additonal information Additional information: 67-year-old male presents to the emergency department stating he was working in the garden yesterday and developed calf pain today. He feels like he strained his calf from overuse but does have a history of DVT. He states he has had 2 blood clots in that leg and is on chronic anticoagulation. He states no missed doses. No increased swelling. No numbness or tingling. No skin changes. Review of Systems Constitutional: denies: Fever, Chills PD PAST MEDICAL HISTORY - Past Medical History Past Medical History: Yes Cardiovascular: Deep vein thrombosis Respiratory: None Neuro: None Endocrine/Autoimmune: None GI: Other HEENT: None Psych: None Musculoskeletal: None Derm: None - Past Surgical History Past Surgical History: No - Present Medications Home Medications: Ambulatory Orders Medication Instructions Recorded Confirmed Alpha Lipoic Acid 600 mg PO DAILY 08/29/22 08/29/22 Apixaban [Eliquis] 5 mg PO BID 08/29/22 08/29/22 - Allergies Allergies/Adverse Reactions: Allergies Allergy/AdvReac Type Severity Reaction Status Date / Time No Known Drug Allergies Allergy Verified 01/20/21 07:31 - Social History Does the pt smoke?: No Smoking Status: Never smoker Does the pt drink ETOH?: No Does the pt have substance abuse?: No - Immunizations Immunizations are current?: Yes - POLST Patient has POLST: No PD ED PE NORMAL - Vitals Vital signs reviewed: Yes - General General: Alert and oriented X 3, No acute distress - HEENT HEENT: Moist mucous membranes - Neck Neck: Supple, no meningeal sign - Derm Derm: Warm and dry - Extremities Extremities: Other (L - calf, mild swelling, NVI. No skin changes. o/w normal LLE exam.) - Neuro Neuro: Alert and oriented X 3 - Psych Psych: Normal mood, Normal affect Results - Vitals Vitals: Vital Signs - 24 hr 08/29/22 08/29/22 20:03 21:15 Temperature 36.9 C Heart Rate 65 62 Respiratory 19 18 Rate Blood Pressure 186/95 H 174/90 H O2 Saturation 98 99 Oxygen O2 Source Room air - Rads (name of study) L LE duplex US Relevant Findings:: Final report received, See rad report PD Medical Decision Making - ED course Complexity details: reviewed results, re-evaluated patient, considered differential, d/w patient ED course: 67-year-old male with what appears to be left calf strain. No evidence of acute DVT on ultrasound. Has chronic thrombus. We will continue his current anticoagulation and have him follow-up with his doctor. No emergency medical condition at this time. Patient counseled regarding signs and symptoms for which I believe and urgent re-evaluation would be necessary. Patient with good understanding of and agreement to plan and is comfortable going home at this time This document was made in part using voice recognition software. While efforts are made to proofread this document, sound alike and grammatical errors may occur. 1. Eccentric nonocclusive filling defects within the mid to distal superficial femoral veins as well as the popliteal veins compatible with chronic thrombus. No occlusive or definite acute deep venous thrombosis. Departure - Departure Disposition: 01 Home, Self Care Clinical Impression: Strain of calf muscle Qualifiers: Encounter type: initial encounter Laterality: left Qualified Code(s): S86.812A - Strain of other muscle(s) and tendon(s) at lower leg level, left leg, initial encounter Chronic deep vein thrombosis (DVT) Qualifiers: DVT location: lower extremity Affected thrombotic vein of extremity: unspecified vein of extremity Laterality: left Qualified Code(s): I82.502 - Chronic embolism and thrombosis of unspecified deep veins of left lower extremity Condition: Good Instructions: ED Strain Muscle Ext Follow-Up: Your,doctor As needed [Other] Comments: Your ultrasound tonight does not show any acute blood clots in your leg. You do have chronic blood clots, please continue your anticoagulant medication at home. Please follow-up with your doctor for further care. Please return if you worsen. Discharge Date/Time: 08/29/22 21:15
[2022-08-29 21:15] VITALS: BP 174/90
--- NOTE | 2022-08-29 21:37 | Ultrasound Report ---
PROCEDURE: Duplex Ext Veins Left INDICATIONS: L calf pain/swelling TECHNIQUE: Real-time imaging, as well as color and pulse Doppler interrogation, were performed of the lower extr emity deep veins from the inguinal ligament to the popliteal fossa. COMPARISON: Left lower extremity Doppler ultrasound 01/20/2021. FINDINGS: There are nonocclusive eccentric filling defects within the mid and distal superficial femoral vein e xtending to the popliteal vein suggestive of chronic thrombus. No occlusive deep venous thrombosis id entified. There is a small Guzman's cyst identified. IMPRESSION: 1. Eccentric nonocclusive filling defects within the mid to distal superficial femoral veins as well as the popliteal veins compatible with chronic thrombus. No occlusive or definite acute deep venous t hrombosis. Reviewed by: Marquise Wang MD on 08/29/2022 9:35 PM PDT Approved by: Marquise Wang MD on 08/29/2022 9:35 PM PDT Station ID: [id number]
== END 2022-08-29 21:15 | disposition home or self-care (01) ==
LOC: ED 19:57
DX: S86.812A Strain of other muscle(s) and tendon(s) at lower leg level, left leg, initial encounter (principal); X58.XXXA Exposure to other specified factors, initial encounter; Y93.H2 Activity, gardening and landscaping; I82.502 Chronic embolism and thrombosis of unspecified deep veins of left lower extremity; Z79.01 Long term (current) use of anticoagulants
CPT/HCPCS: 99283; 99284

== ENCOUNTER 2022-09-23 07:45 | Outpatient (CLI) | payer OTHER ==
[2022-09-23 07:30] LABS: ALBUMIN 4.3 g/dL (3.2-5.5); ALBUMIN/GLOBULIN RATIO 1.7 (1.0-2.2); BILIRUBIN,TOTAL 0.8 mg/dL (0.2-1.0); CALCIUM 8.8 mg/dL (8.5-10.3); CREATININE 0.9 mg/dL (0.6-1.2); TOTAL PROTEIN 6.9 g/dL (6.7-8.2)
[2022-09-23 07:36] LABS: BASOPHILS % (AUTO) 0.8 %; EOSINOPHILS # (AUTO) 0.2 10^3/uL (0.0-0.7); EOSINOPHILS % (AUTO) 3.2 %; HCT - HEMATOCRIT 46.3 % (42.0-52.0); HGB - HEMOGLOBIN 15.3 g/dL (14.0-18.0); LYMPHOCYTES # (AUTO) 1.8 10^3/uL (1.5-3.5); LYMPHOCYTES % (AUTO) 36.3 %; MEAN CORPUSCULAR HEMOGLOBIN 30.1 pg (27.0-31.0); MEAN PLATELET VOLUME 10.7 fL (7.4-11.4); MONOCYTES # (AUTO) 0.6 10^3/uL (0.0-1.0); MONOCYTES % (AUTO) 12.4 %; NEUTROPHILS # (AUTO) 2.4 10^3/uL (1.5-6.6); NEUTROPHILS % (AUTO) 47.1 %; PLT - PLATELET COUNT 191 10^3/uL (130-450); RED BLOOD COUNT 5.09 10^6/uL (4.70-6.10); RED CELL DISTRIBUTION WIDTH 13.2 % (12.0-15.0)
[2022-09-23 16:50] LABS: BILIRUBIN,URINE NEGATIVE (NEGATIVE); GLUCOSE, URINE (UA) NEGATIVE (NEGATIVE); KETONES,URINE (UA) NEGATIVE (NEGATIVE); LEUKOCYTE ESTERASE, URINE NEGATIVE (NEGATIVE); NITRITE,URINE NEGATIVE (NEGATIVE); OCCULT BLOOD,URINE TRACE-LYSE (NEGATIVE); PH,URINE 5.5 PH (5.0-7.5); PROTEIN,URINE NEGATIVE (NEGATIVE); UROBILINOGEN,URINE 0.2 (NORMAL) E.U./dL (NORMAL)
[2022-09-23 16:51] LABS: CLARITY,URINE CLEAR (CLEAR)
[2022-09-23 16:59] LABS: BACTERIA,URINE Rare /HPF (None Seen); RBC,URINE 0-5 /HPF (0-5); SQUAMOUS EPITHELIAL CELL,UR NONE SEEN (<= Few); WBC,URINE 0-3 /HPF (0-3)
== END 2022-09-23 07:46 | disposition home or self-care (01) ==
LOC: LAB 07:45
PROVIDERS: ATTEND Internal Medicine
DX: R10.32 Left lower quadrant pain (principal)
CPT/HCPCS: 36415; 80053; 81001; 82150; 83690; 85025; 87086

== ENCOUNTER 2022-09-30 08:02 | Outpatient (CLI) | payer OTHER ==
[2022-09-30] MEDS ORDERED: iohexoL-300 100 ML VIAL ONE (08:14)
--- NOTE | 2022-09-30 11:11 | CT Report ---
PROCEDURE: ABDOMEN/PELVIS W INDICATIONS: LEFT LOWER QUAD ABD PAIN CONTRAST: 100ml Omnipaque 300 TECHNIQUE: After the administration of weight appropriate dose of intravenous contrast, 5 mm thick sections acqu ired from the diaphragms to the symphysis. 5 mm thick coronal and sagittal reformats were acquired. For radiation dose reduction, the following was used: automated exposure control, adjustment of mA and/or kV according to patient size. Oral contrast was also given COMPARISON: 01/20/2021 FINDINGS: Image quality: Excellent Lung bases: small hiatal hernia. Lung bases are clear. Heart: No significant findings. ABDOMEN: Liver: Multiple scattered hepatic hypodensities which are incompletely characterized. Largest is not ed in the hepatic dome measuring approximately 2.9 cm in size. This measures fluid attenuation. Find ings likely represent hepatic cysts. Gallbladder:Unremarkable. Biliary ducts: Unremarkable. No biliary ductal dilatation. Pancreas: Pancreas is normal in contour and homogeneous in enhancement. No peripancreatic inflammati on. Spleen: No splenomegaly Adrenal Glands: No adrenal nodules. Kidneys and Ureters: Bilateral kidneys demonstrate normal size and enhancement. No hydronephrosis. Bilateral ureters are normal in course and caliber. No perinephric or periureteral stranding. Stomach and Bowel: Stomach, small bowel loops, and colon are unremarkable. Normal appendix. Peritoneum: No abnormal intraperitoneal fluid. No free air. Ventral Wall: Small fat-containing umbilical hernia without acute inflammation. Abdominal Nodes: No retroperitoneal or mesenteric adenopathy by size criteria. Vessels: Aorta and inferior vena cava are normal in size. Atherosclerotic calcifications are noted . PELVIS: Pelvic Organs: Unremarkable as visualized. Bladder: Unremarkable. Urinary bladder wall is normal for degree of distention. Pelvic Nodes: No pathologically enlarged pelvic lymph nodes. Miscellaneous: Redemonstration of small fat-containing left inguinal hernia without acute inflammatio n. Bones: No acute compression fractures. No suspicious osseous lesions. Multilevel lumbar spondylosi s. Degenerative changes of the bilateral hips. IMPRESSION: 1. CT abdomen and pelvis without acute abnormalities to explain patient's symptoms. 2. Multiple hepatic hypodensities measuring up to 2.9 cm. Largest hypodense lesion measures near flui d attenuation. Findings are likely hepatic cysts. 3. Small hiatal hernia. 4. Normal appendix. 5. Small fat-containing umbilical and left inguinal hernias without acute inflammation. 6. Atherosclerosis. 7. 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 Reviewed by: Ortiz Serna MD on 09/30/2022 11:09 AM PDT Approved by: Ortiz Serna MD on 09/30/2022 11:09 AM PDT Station ID: [id number]
[2022-09-30] MEDS ORDERED: DIATRIZOATE MEGLU/DIATRIZO SOD 30 ML BOTTLE PO ONE (11:14)
[2022-09-30] MEDS ORDERED: iohexoL-300 100 ML VIAL IVP ONE (11:14)
== END 2022-09-30 08:03 | disposition home or self-care (01) ==
LOC: DI 08:02
PROVIDERS: ATTEND Internal Medicine
DX: R10.32 Left lower quadrant pain (principal); R16.0 Hepatomegaly, not elsewhere classified; K44.9 Diaphragmatic hernia without obstruction or gangrene; K40.90 Unilateral inguinal hernia, without obstruction or gangrene, not specified as recurrent; K42.9 Umbilical hernia without obstruction or gangrene; M16.0 Bilateral primary osteoarthritis of hip; M47.816 Spondylosis without myelopathy or radiculopathy, lumbar region
CPT/HCPCS: 74177; Q9963; Q9967; 36415; 80053; 81001; 82150; 83690; 85025; 87086

== ENCOUNTER 2023-06-15 06:49 | Outpatient (CLI) | payer OTHER ==
[2023-06-15 07:26] LABS: BASOPHILS % (AUTO) 0.6 %; EOSINOPHILS # (AUTO) 0.1 10^3/uL (0.0-0.7); EOSINOPHILS % (AUTO) 1.7 %; HCT - HEMATOCRIT 44.7 % (42.0-52.0); HGB - HEMOGLOBIN 15.1 g/dL (14.0-18.0); LYMPHOCYTES # (AUTO) 1.6 10^3/uL (1.5-3.5); MEAN CORPUSCULAR HEMOGLOBIN 30.6 pg (27.0-31.0); MEAN CORPUSCULAR HGB CONC 33.8 g/dL (32.0-36.0); MEAN CORPUSCULAR VOLUME 90.7 fL (80.0-94.0); MONOCYTES # (AUTO) 0.5 10^3/uL (0.0-1.0); MONOCYTES % (AUTO) 10.4 %; NEUTROPHILS # (AUTO) 2.9 10^3/uL (1.5-6.6); NEUTROPHILS % (AUTO) 56.1 %; PLT - PLATELET COUNT 187 10^3/uL (130-450); RED BLOOD COUNT 4.93 10^6/uL (4.70-6.10); RED CELL DISTRIBUTION WIDTH 13.3 % (12.0-15.0); WHITE BLOOD COUNT 5.2 x10^3/uL (4.8-10.8)
[2023-06-15 07:36] LABS: THYROID STIMULATING HORMONE 1.98 uIU/mL (0.34-5.60)
[2023-06-15 07:49] LABS: ALBUMIN 4.2 g/dL (3.2-5.5); ALBUMIN/GLOBULIN RATIO 1.8 (1.0-2.2); ALKALINE PHOSPHATASE 51 IU/L (42-121); ALT ALANINE AMINOTRANSFERASE 28 IU/L (10-60); AST ASPARTATE AMINOTRANSFERASE 27 IU/L (10-42); BILIRUBIN,TOTAL 0.7 mg/dL (0.2-1.0); BUN - BLOOD UREA NITROGEN 19 mg/dL (6-20); CALCIUM 9.2 mg/dL (8.5-10.3); CARBON DIOXIDE - CO2 27 mmol/L (21-32); CHLORIDE 106 mmol/L (101-111); CHOL/HDL RATIO 4.4 (<5.0); CHOLESTEROL 220 mg/dL; CREATININE 0.9 mg/dL (0.6-1.3); GFR - MDRD 84 (>89); GLUCOSE 102 mg/dL (74-104); HDL CHOLESTEROL 50 mg/dL; LDL CHOLESTEROL,CALCULATED 155 mg/dL; LDL/HDL RATIO 3.1 (<3.6); POTASSIUM 3.8 mmol/L (3.5-4.5); SODIUM 137 mmol/L (135-145); TOTAL PROTEIN 6.6 g/dL (6.4-8.9); TRIGLYCERIDES 75 mg/dL (48-352); VLDL CHOLESTEROL 15 mg/dL
[2023-06-15 09:19] LABS: ESTIMATED AVERAGE GLUCOSE 114 mg/dL (70-100); HEMOGLOBIN A1c% 5.6 % (4.27-6.07)
== END 2023-06-15 06:50 | disposition home or self-care (01) ==
LOC: LAB 06:49
PROVIDERS: ATTEND Internal Medicine
DX: R73.01 Impaired fasting glucose (principal); Z13.220 Encounter for screening for lipoid disorders; Z12.5 Encounter for screening for malignant neoplasm of prostate; Z13.29 Encounter for screening for other suspected endocrine disorder; J45.990 Exercise induced bronchospasm
CPT/HCPCS: 36415; 80053; 80061; 83036; 83721; 84153; 84443; 85025